=== PATIENT | male | born 1945 | race Caucasian/White ===

== ENCOUNTER 2018-09-17 10:20 | Inpatient (IN) | payer MEDICARE, OTHER ==
[~2018-09-17] VITALS: Ht 172.7 cm; Wt 77.4 kg
[~2018-09-17 10:20] MED LIST: HYDR-3240 PO; HYDR-3241 PO; LEVO750T26 PO; LOVA20TA2 PO; NITROGLYCERIN; POTA20PA31 PO; TRAM-47 PO
--- NOTE | 2018-09-17 10:54 | NUR ---
PT CURRENTLY IN US, PT TO BE RETURNED TO ED 19 UPON COMPLETION OF SCAN
--- NOTE | 2018-09-17 10:54 | NUR ---
Carmina galvez in EDM - 09/17/18 at 1128 by EDWIN PT CURRENTLY IN ED 19, PT TO BE RETURNED TO ED 19 UPON COMPLETION OF SCAN
[2018-09-17] MEDS ORDERED: OXYcodone/APAP 5/325MG TABLET PO ONE (11:30)
[2018-09-17] MEDS ORDERED: SODIUM CHLORIDE FLUSH 10ML SYR IVF ONE (11:30)
[2018-09-17 11:39] LABS: BASOPHILS # (AUTO) 0.01 x10^3/uL (0-0.1); BASOPHILS % (AUTO) 0 % (0-1); EOSINOPHILS % (AUTO) 0 % (1-7); LYMPHOCYTES # (AUTO) 0.77 x10^3/uL (1-3.4); LYMPHOCYTES % (AUTO) 22 % (22-44); MD NO; MEAN CORPUSCULAR HEMOGLOBIN 35.8 pg (27.5-34.5); MEAN CORPUSCULAR HGB CONC 34.6 g/dL (33.2-36.2); MEAN CORPUSCULAR VOLUME 103.5 fL (81-97); MEAN PLATELET VOLUME 7.1 fL (7.4-10.4); MONOCYTES # (AUTO) 0.39 x10^3/uL (0.2-0.8); MONOCYTES % (AUTO) 11 % (2-9); NEUTROPHILS % (AUTO) 66 % (42-75); PLATELET COUNT 299 x10^3/uL (130-400); RED BLOOD COUNT 3.98 x10^6/uL (4.38-5.82)
[2018-09-17 11:49] LABS: INTERNATIONAL NORMALIZED RATIO 1.01 (0.93-1.1); PROTHROMBIN TIME 10.6 Seconds (9.6-11.5)
[2018-09-17 11:50] LABS: ALBUMIN 3.2 g/dL (3.4-5.0); ANION GAP 5 mmol/L (5-15); CALCIUM 8.5 mg/dL (8.5-10.1); CHLORIDE 108 mmol/L (98-107); CREATININE 0.94 mg/dL (0.7-1.3)
--- NOTE | 2018-09-17 11:56 | NUR ---
REPORT FROM LUIS THOMSON, ASSUME CARE OF PT AT THIS TIME. ORDERS REVIEWED.
[2018-09-17] MEDS ORDERED: AMPICILLIN/SULBACTAM 3 GM in SODIUM CHLORIDE 0.9% 100 ML IVPB ONE (12:00)
[2018-09-17] MEDS ORDERED: HEPARIN 5,000 UNITS/ML, 1ML IV ONE (12:00)
[2018-09-17] MEDS ORDERED: SODIUM CHLORIDE FLUSH 10ML SYR IVF PRN (12:00)
[2018-09-17] MEDS ORDERED: HEPARIN 25,000 UNITS/500ML PMX 500 ML IV PRN (12:00)
[2018-09-17] MEDS ORDERED: HEPARIN 5,000 UNITS/ML, 1ML IV PRN (12:00)
[2018-09-17] MEDS ORDERED: OXYcodone/APAP 5/325MG TABLET ONE (12:04)
[2018-09-17 12:25] LABS: ALANINE AMINOTRANSFERASE 14 U/L (12-78); BILIRUBIN,TOTAL 0.7 mg/dL (0.2-1.0)
[2018-09-17 12:28] LABS: ALKALINE PHOSPHATASE 105 U/L (45-117); TOTAL PROTEIN 7.5 g/dL (6.4-8.2)
[2018-09-17] MEDS ORDERED: HEPARIN 5,000 UNITS/ML, 1ML ONE (12:30)
[2018-09-17] MEDS ORDERED: HEPARIN 25,000 UNITS/500ML PMX 500 ML ONE (12:31)
--- NOTE | 2018-09-17 12:43 | NUR ---
IV X 2 STARTED, LABS INCLUDING BC X 2 DRAWN WITH EACH IV START. ANTIBIOTIC INFUSING PER ERP ORDER. HEPARIN BOLUS AND GTT INFUSING PER ERP ORDER. PT READY FOR TRANSPORT TO FLOOR.
--- NOTE | 2018-09-17 13:01 | NUR ---
[facility] IN TO SEE PT. CHANGE IN ADMIT DESIGNATION TO CARD TELE, D/T PT C/O INTERMITTENT CP. THROUGHPUT RN NOTIFIED OF CHANGE.
[2018-09-17] MEDS ORDERED: HYDR-3241 PO (13:25)
[2018-09-17] MEDS ORDERED: ASPIRIN PO (13:25)
[2018-09-17] MEDS ORDERED: METO25TA35 PO (13:25)
[2018-09-17] MEDS ORDERED: LOSA25TA25 PO (13:25)
[2018-09-17] MEDS ORDERED: morphine SULFATE 10 MG/ML, 1ML IVPush PRN (13:30)
[2018-09-17] MEDS ORDERED: ASPIRIN 81 MG TABLET CHEW PO ONE (13:30)
[2018-09-17] MEDS ORDERED: ACETAMINOPHEN 325 MG TABLET PO PRN (13:30)
[2018-09-17] MEDS ORDERED: LABETALOL 5MG/ML, 20ML IVPush PRN (13:30)
[2018-09-17] MEDS ORDERED: ONDANSETRON 2MG/ML, 2ML IVPush PRN (13:30)
[2018-09-17] MEDS ORDERED: NITROGLYCERIN 0.4 MG BOTTLE (25 TABS) SL PRN (13:30)
[2018-09-17 13:52] LABS: TROPONIN I < 0.015 ng/mL (0.000-0.045)
[2018-09-17] MEDS: NICOTINE 14MG/24 HR PATCH.TD24 TD SCH (17:29)
[2018-09-17] MEDS: RIVAROXABAN 15 MG TABLET PO SCH (17:29)
[2018-09-17 18:04] VITALS: BP 100/59
[2018-09-17 19:03] LABS: TROPONIN I < 0.015 ng/mL (0.000-0.045)
[2018-09-17 20:11] VITALS: BP 124/72
[2018-09-17] MEDS ORDERED: AMOXICILLIN/CLAV 875-125MG TABLET PO SCH (21:00)
[2018-09-17] MEDS: LISINOPRIL 20 MG TABLET PO SCH (21:21)
[2018-09-17] MEDS: ATORVASTATIN 80 MG TABLET PO SCH (21:21)
[2018-09-18 01:40] VITALS: BP 95/58
[2018-09-18 04:40] LABS: ALBUMIN 2.5 g/dL (3.4-5.0); ANION GAP 7 mmol/L (5-15); CALCIUM 7.8 mg/dL (8.5-10.1); CHLORIDE 110 mmol/L (98-107)
[2018-09-18 04:45] LABS: ALANINE AMINOTRANSFERASE 11 U/L (12-78); ALKALINE PHOSPHATASE 88 U/L (45-117); BILIRUBIN,TOTAL 0.5 mg/dL (0.2-1.0); CREATININE 0.79 mg/dL (0.7-1.3); TOTAL PROTEIN 5.7 g/dL (6.4-8.2)
[2018-09-18 04:50] LABS: BASOPHILS # (AUTO) 0.02 x10^3/uL (0-0.1); BASOPHILS % (AUTO) 1 % (0-1); EOSINOPHILS % (AUTO) 0 % (1-7); LYMPHOCYTES # (AUTO) 0.81 x10^3/uL (1-3.4); LYMPHOCYTES % (AUTO) 23 % (22-44); MD NO; MEAN CORPUSCULAR HGB CONC 34.5 g/dL (33.2-36.2); MEAN CORPUSCULAR VOLUME 104.1 fL (81-97); MEAN PLATELET VOLUME 7.3 fL (7.4-10.4); MONOCYTES # (AUTO) 0.39 x10^3/uL (0.2-0.8); MONOCYTES % (AUTO) 11 % (2-9); NEUTROPHILS # (AUTO) 2.23 x10^3/uL (1.8-6.8); NEUTROPHILS % (AUTO) 65 % (42-75); PLATELET COUNT 256 x10^3/uL (130-400); RED BLOOD COUNT 3.25 x10^6/uL (4.38-5.82); RED CELL DISTRIBUTION WIDTH 15.3 % (9.4-14.8)
[2018-09-18] MEDS: ASPIRIN 325 MG TABLET EC PO SCH (05:52)
[2018-09-18 07:19] VITALS: BP 112/62
[2018-09-18] MEDS ORDERED: REGADENOSON 0.4 MG/5 ML SYRINGE ONE (09:02)
[2018-09-18] MEDS: AMPICILLIN/SULBACTAM 3 GM in SODIUM CHLORIDE 0.9% 100 ML IV SCH ×2 (10:49→14:56)
[2018-09-18] MEDS: LISINOPRIL 20 MG TABLET PO SCH ×2 (10:49→21:36)
[2018-09-18] MEDS: RIVAROXABAN 15 MG TABLET PO SCH ×2 (10:49→17:48)
[2018-09-18] MEDS: NICOTINE 14MG/24 HR PATCH.TD24 TD SCH (13:36)
[2018-09-18 13:41] VITALS: BP 111/53
[2018-09-18 19:35] VITALS: BP 109/64
[2018-09-18] MEDS: ATORVASTATIN 80 MG TABLET PO SCH (21:36)
[2018-09-18] MEDS: PIPERACILLIN/TAZO/PMX 3.375GM 50 ML IV SCH (22:06)
[2018-09-19 01:02] VITALS: BP 121/72
[2018-09-19] MEDS: ASPIRIN 325 MG TABLET EC PO SCH (04:12)
[2018-09-19] MEDS: PIPERACILLIN/TAZO/PMX 3.375GM 50 ML IV SCH ×2 (04:12→08:50)
[2018-09-19 07:57] VITALS: BP 122/66
[2018-09-19] MEDS: LISINOPRIL 20 MG TABLET PO SCH (08:49)
[2018-09-19] MEDS: RIVAROXABAN 15 MG TABLET PO SCH (08:49)
[2018-09-19] MEDS ORDERED: ATOR-2 PO (10:22)
[2018-09-19] MEDS ORDERED: RIVA1TAB PO (10:22)
[2018-09-19] MEDS ORDERED: LISI-170 PO (10:22)
[2018-09-19] MEDS ORDERED: AMOXICILLIN/CLAV 875-125MG TABLET PO SCH (10:30)
[2018-09-19] MEDS ORDERED: POTASSIUM CHLORIDE 20 MEQ TAB.ER.PRT PO ONE (10:30)
[2018-09-19] MEDS ORDERED: AMOX1TAB12 PO (12:09)
== END 2018-09-19 12:24 | disposition home or self-care (01) | DRG 300 ==
LOC: ED 11:51 → EDIP 11:52 → ED 11:59 → 4WST 13:57 → DCLOUNGE 09-19 11:50
PROVIDERS: ADMIT Internal Medicine; ATTEND Internal Medicine
DX: I82.411 Acute embolism and thrombosis of right femoral vein (principal); L03.115 Cellulitis of right lower limb; E44.1 Mild protein-calorie malnutrition; F11.20 Opioid dependence, uncomplicated; K50.90 Crohn's disease, unspecified, without complications; L03.116 Cellulitis of left lower limb; G89.29 Other chronic pain; F17.210 Nicotine dependence, cigarettes, uncomplicated; J44.9 Chronic obstructive pulmonary disease, unspecified; I10 Essential (primary) hypertension; E78.5 Hyperlipidemia, unspecified; Z86.718 Personal history of other venous thrombosis and embolism; Z90.49 Acquired absence of other specified parts of digestive tract; Z93.3 Colostomy status; Z68.25 Body mass index [BMI] 25.0-25.9, adult
CPT/HCPCS: 36415; 71045; 78452; 80053; 83605; 84484; 85025; 85520; 85610; 85730; 87040; 93005; 93017; 93306; 96365; 96375; 99285; G0378; J0295; J1644; J2543; J2785; A9502; C9898